=== PATIENT | male | born 1995 | race Caucasian/White ===

== ENCOUNTER 2016-09-30 20:30 | Emergency (ER) ==
[2016-09-30 21:03] LABS: MANUAL DIFF NEEDED? NO
[2016-09-30 21:26] LABS: BASO% 0.3 % (0.0-0.8); EOS# 0.12 X1000 (0.0-0.7); EOS% 1.3 % (0.0-10.0); HEMATOCRIT 45.8 % (42.0-52.0); HEMOGLOBIN 16.2 g/dL (14.0-18.0); IMM GRAN# 0.03 X1000 (0.0-0.04); IMM GRAN% 0.3 % (0.0-0.5); LYMPH# 2.12 X1000 (1.2-3.4); LYMPH% 23.8 % (20.5-51.1); MCH 29.9 PG (27-31); MCHC 35.4 g/dL (33-37); MCV 84.7 FL (81-99); MONO# 0.77 X1000 (0.11-0.59); MONO% 8.6 % (1.7-9.3); MPV 11.6 FL (7.4-10.4); NEUT% 65.7 % (42.2-75.2); PLT 243 X1000 (130-400); RBC 5.41 XMIL (4.7-6.1)
[2016-09-30 21:37] LABS: AGAP 14; ALBUMIN 4.9 g/dL (3.5-5.0); ALKALINE PHOSPHATASE 98 U/L (32-122); BUN 14 mg/dL (8-22); CALCIUM 10.2 mg/dL (8.8-10.2); CHLORIDE 100 mmol/L (98-107); COSMO 281; GOT 32 U/L (10-34); GPT 41 U/L (10-44); SODIUM 141 mmol/L (136-145); TCO2 27 mmol/L (25-35); TOTAL BILIRUBIN 0.65 mg/dL (0.20-1.00); TOTAL PROTEIN 8.5 g/dL (6.3-8.3)
--- NOTE | 2016-09-30 21:39 | PROVIDER DOCUMENTATION ---
HPI-Abdominal Pain/GI Problem - General Chief Complaint: GI Bleed Stated Complaint: BLOOD IN STOOL Time Seen by Provider: 09/30/16 20:51 Source: patient Allergies/Adverse Reactions: Patient Allergies Allergy/AdvReac Type Severity Reaction Status Date / Time No Known Allergies Allergy Verified 09/30/16 20:51 Home Medications: Home Medication List Medication Instructions Recorded Confirmed Last Taken Type Bisacodyl [Dulcolax] 10 mg IL QHS #20 supp 09/30/16 Unknown Rx Polyethylene Glycol 3350 [Miralax] 510 gm PO DAILY #1 powder 09/30/16 Unknown Rx - History of Present Illness-ABD Nature of Presenting Problems: 21 y/o WM c/o blood in his stool today. States this has happened once or twice in the past but not to this degree. Patient states it is very painful to have a BM, and develops some abdominal pain right before having a BM, relieved afterwards. denies fever, weight loss, nausea, or vomiting. Blood is bright red , mostly with wiping, but one time states about 1/4 a cup. Review of Systems - Adult - REVIEW OF SYSTEMS - ADULT Constitutional: reports: see HPI, fatique. denies: chills, fever Eyes: reports: no symptoms reported. denies: blurred vision, double vision, eye pain Ears, Nose, Mouth & Throat: reports: no symptoms reported. denies: ear pain, nose pain, throat pain Cardiovascular: reports: no symptoms reported. denies: chest pain, palpitations Respiratory: reports: no symptoms reported. denies: cough, shortness of breath , wheezing Gastrointestinal: reports: see HPI, abdominal pain, rectal bleeding. denies: diarrhea, nausea, vomiting Genitourinary: reports: no symptoms reported. denies: dysuria, discharge, frequency, incontinence Musculoskeletal: reports: no symptoms reported. denies: muscle aches Integumentary: reports: no symptoms reported. denies: rash Neurological: reports: no symptoms reported. denies: headache/migraines Psychiatric: reports: no symptoms reported Endocrine: reports: no symptoms reported Hematologic/Lymphatic: reports: no symptoms reported Allergic/Immunologic: reports: no symptoms reported All Other Systems: Reviewed and Negative Past History - Adult - PAST MEDICAL HISTORY-ADULT Review of Records: reports: Old Records Reviewed, Nursing Assessment Review, Medications Reviewed, Social history reviewed & non-contributory. Major Childhood Illnesses: reports: denies history Cardiovascular: reports: denies history Respiratory: reports: denies history Gastrointestinal: reports: denies history Genitourinary: reports: denies history Musculoskeletal: reports: denies history Neurological: reports: denies history Endocrine/Immune: reports: denies history Other Conditions: reports: denies history - PRIOR SURGERIES/PROCEDURES Surgical/Procedure History: reports: reviewed, not pertinent - IMMUNIZATION STATUS Childhood Immunizations: See Nurse Assessment Flu Vaccine: See Nurse Assessment - FAMILY HISTORY Family History: reviewed, not pertinent - SOCIAL HISTORY Smoking: denies Substance Use: none/never Alcohol Use Frequency: never Physical Exam-General - PHYSICAL EXAM-ADULT Initial Vital Signs Reviewed: Yes - CONSTITUTIONAL General Appearance: appears well, alert, no apparent distress - EYES Eyes: PERRL/EOMI, pink conjunctivae - HEAD, EARS, NOSE, MOUTH & THROAT HENMT: normocephalic/atraumatic, moist mucous membranes - NECK Neck: non-tender, full range of motion, supple, normal inspection - RESPIRATORY Respiratory: chest non-tender, lungs clear, normal breath sounds, no pleuratic chest pain, no respiratory distress, no accessory muscle use. negative: respiratory distress, decreased breath sounds, accessory muscle use, crackles, rales, rhonchi, wheezing - CARDIOVASCULAR Cardiovascular: normal peripheral pulses, regular rate, rhythm - GASTROINTESTINAL (ABDOMEN) Abdominal Exam: normal bowel sounds, non tender, soft, no organomegaly, no pulsatile mass. negative: abdominal bruit, abnormal bowel sounds, distended, guarding, rigid, rebound, tenderness - GENITOURINARY Rectal Exam: other (fissure, posterior) - MUSCULOSKELETAL Back Exam: normal inspection Extremity: normal range of motion, non-tender, normal gait, normal inspection - SKIN Integumentary: normal color, normal turgor, warm/dry Progress - PLAN OF CARE/RESULTS Progress/Plan/Lab Results: Vital Signs Temp Pulse Resp BP Pulse Ox 09/30/16 20:37 97.8 F 71 18 137/85 100 No Known Allergies Allergy (Verified 09/30/16 20:51) No Home Medications 09/30/16 Laboratory 09/30/16 09/30/16 20:50 20:50 WBC 8.91 RBC 5.41 Hgb 16.2 Hct 45.8 MCV 84.7 MCH 29.9 MCHC 35.4 RDW Std Deviation 12.4 Plt Count 243 MPV 11.6 H Immature Gran % (Auto) 0.3 Neut % (Auto) 65.7 Lymph % (Auto) 23.8 Garza % (Auto) 8.6 Eos % (Auto) 1.3 Baso % (Auto) 0.3 Immature Gran # (Auto) 0.03 Neut # (Auto) 5.84 Lymph # (Auto) 2.12 Garza # (Auto) 0.77 H Eos # (Auto) 0.12 Baso # (Auto) 0.03 Sodium 141 Potassium 4.0 Chloride 100 Carbon Dioxide 27 Anion Gap 14 BUN 14 Creatinine 1.0 Estimated GFR/1.73 m2 > 60 BUN/Creatinine Ratio 14 Glucose 85 Calculated Osmolality 281 Calcium 10.2 Total Bilirubin 0.65 AST 32 ALT 41 Alkaline Phosphatase 98 Total Protein 8.5 H Albumin 4.9 Globulin 3.6 Albumin/Globulin Ratio 1.4 Orders Category Date Time Status CBC WITH DIFF [HEME] Stat Lab 09/30/16 20:50 Completed COMPREHENSIVE METABOLIC PANEL [CHEM] Stat Lab 09/30/16 20:50 Completed OCCULT BLOOD SCREENING [STOOL] Stat Lab 09/30/16 21:10 Completed occult negative Departure - Departure Time of Disposition Order: 21:43 DIAGNOSIS: Fissure in ano Disposition: HOME 01 Certified Medical Emergency: Emergent Condition: Stable Additional Instructions: Follow up with Dr. Gonsales, GI ED Follow Up Instructions: You have been treated by a care provider in the Emergency Department. These instructions are being provided to you so you can have an understanding of how to care for yourself upon discharge. Upon discharge from the Emergency Department, you are responsible for making arrangements for follow-up care by a physician of your choice. Take all prescribed medications as directed. Return to the Emergency Department immediately for any new or worsening symptoms. You may call the Physician Referral phone number at [phone] to obtain a list of Physicians who are taking new patients. Prescriptions: Bisacodyl [Dulcolax] 10 mg IL QHS #20 supp Polyethylene Glycol 3350 [Miralax] 510 gm PO DAILY #1 powder Referrals: Gaurang Saenz MD [Primary Care Provider] - Alden Gonsales MD [STAFF PHYSICIAN] - Attestation - Physician/ CRISTÓBAL Attestation Patient care was provided by Advanced Practice Provider:: Yes Advanced Practice Provider:: Jojo Hernández Advanced Practice Provider documentation review:: The Mid-level provider documentation, treatment plan and medical decision making was reviewed by the physician who agrees with all treatment and medical decision making by the MLP.
[2016-09-30 22:03] VITALS: BP 133/74
== END 2016-09-30 22:03 | disposition home or self-care (01) ==
LOC: ED 20:30
DX: K60.2 Anal fissure, unspecified (principal); K92.1 Melena; R10.9 Unspecified abdominal pain; R53.83 Other fatigue; K62.5 Hemorrhage of anus and rectum
CPT/HCPCS: 80053; 82270; 85025